=== PATIENT | female | born 1995 | race Caucasian/White ===

== ENCOUNTER 2022-07-10 20:11 | Emergency (ER) | payer MEDICAID, OTHER ==
[~2022-07-10] VITALS: Ht 162.6 cm; Wt 74.8 kg
[2022-07-10 20:24] VITALS: BP 145/82
--- NOTE | 2022-07-10 20:28 | NUR ---
TO LOBBY A/W BED AMBULATORY
--- NOTE | 2022-07-10 21:10 | NUR ---
PT TO BED 11. SEE ASSESSMENT
--- NOTE | 2022-07-10 21:54 | NUR ---
LAB AT BEDSIDE
[2022-07-10 23:56] VITALS: BP 122/71
== END 2022-07-10 23:56 | disposition home or self-care (01) ==
LOC: MED 20:11
DX: O20.0 Threatened abortion (principal); Z3A.01 Less than 8 weeks gestation of pregnancy
CPT/HCPCS: 36415; 81002; 81025; 84702; 99283